=== PATIENT | female | born 1940 | race Caucasian/White ===

== ENCOUNTER 2019-02-23 13:51 | Emergency (ER) | payer OTHER, BC ==
[~2019-02-23] VITALS: Ht 167.6 cm; Wt 75.9 kg
[2019-02-23 14:18] VITALS: Ht 167.6 cm; Wt 75.9 kg
[2019-02-23 16:11] VITALS: BP 119/69
== END 2019-02-23 16:11 | disposition home or self-care (01) ==
LOC: ED 13:51
DX: S09.90XA Unspecified injury of head, initial encounter (principal); I10 Essential (primary) hypertension; E11.9 Type 2 diabetes mellitus without complications; Z88.0 Allergy status to penicillin; X58.XXXA Exposure to other specified factors, initial encounter; Y93.89 Activity, other specified; Y92.89 Other specified places as the place of occurrence of the external cause; Y99.8 Other external cause status